=== PATIENT | female | born 1985 | race Caucasian/White ===

== ENCOUNTER → 2016-06-28 | Outpatient (CLI) | payer OTHER ==
[~2016-06-28] VITALS: Ht 149.9 cm; Wt 59.0 kg
[~2016-06-28] MED LIST: AMOXICILLIN500 MG PO; BENTYL20 MG PO; CLONIDINE HCL0.2 MG PO; Macrobid PO; Motrin PO; NOHOMEMEDS; Ortho Cyclen 28 PO; PNV PRENATAL P1 EACH PO; ULTRAM50 MG PO; ZANTAC300 MG PO; ZITHROMAX Z-PA250 MG PO; ZOFRAN ODT4 MG PO
[2016-06-28 08:55] VITALS: BP 118/56
== END | disposition home or self-care (01) ==
LOC: IVINF 08:30
DX: O26.899 Other specified pregnancy related conditions, unspecified trimester (principal); Z3A.00 Weeks of gestation of pregnancy not specified; Z67.91 Unspecified blood type, Rh negative
CPT/HCPCS: 96372; J2790

== ENCOUNTER 2016-07-30 20:40 | Outpatient (CLI) | payer OTHER ==
[2016-07-30 20:54] VITALS: BP 120/69
[2016-07-30 22:07] VITALS: BP 117/72
[2016-07-30 22:43] LABS: ADD MIUA? YES; BILIRUBIN NEGATIVE; BLOOD NEGATIVE; COLOR YELLOW ((YELLOW)); GLUCOSE (STRIP) NEGATIVE; KETONES NEGATIVE; LEUKOCYTES SMALL; NITRITE NEGATIVE; PROTEIN (STRIP) NEGATIVE; SPECIFIC GRAVITY 1.008 (1.000-1.030); UROBILINOGEN 0.2 MG/DL (0.2-1.0)
[2016-07-30 23:05] LABS: AMPHETAMINES QUANT VALUE 0 NG/ML; BACTERIA NONE SEEN /HPF; BARBITUATES QUANT VALUE 0 NG/ML; BENZODIAZEPINES QUANT VALUE 0 NG/ML; BENZODIAZEPINES, URINE SCREEN Negative (200 ng/mL); EPITHELIAL CELLS 2+ /HPF; MARIJUANA QUANT VALUE 0 NG/ML; MUCUS TRACE /LPF; OPIATES QUANTITATIVE VALUE 0 NG/ML; PHENCYCLIDINE QUANT VALUE 0 NG/ML; RED BLOOD CELLS 0-5 /HPF (0-5); WHITE BLOOD CELLS 20-30 /HPF (0-5)
== END 2016-07-30 23:45 | disposition home or self-care (01) ==
LOC: LDRP-OP → 2WEST 20:44 → LDRP-OP 10-24 13:44
PROVIDERS: Advanced Practice Midwife
DX: O26.893 Other specified pregnancy related conditions, third trimester (principal); M54.9 Dorsalgia, unspecified; Z3A.37 37 weeks gestation of pregnancy
CPT/HCPCS: 59025; 80306 90; 81003; 87077; 87086; 87186; G0378

== ENCOUNTER 2016-09-10 08:08 | Inpatient (IN) | payer OTHER ==
[~2016-09-10] VITALS: Ht 149.9 cm; Wt 68.6 kg
[2016-09-10] VITALS (18 sets, daily range): BP systolic 110–155; BP diastolic 60–87
[2016-09-10] MEDS ORDERED: GUMMI BEAR MUL1 EACH PO (08:39)
[2016-09-10 10:29] LABS: EOSINOPHIL (%) 0.7 % (0-5); EOSINOPHIL COUNT 0.1 K/uL (0-0.3); HEMATOCRIT 30.4 % (36.0-46.0); IMMATURE GRANULOCYTE (%) 1.8 % (0.0-0.7); IMMATURE GRANULOCYTE COUNT 0.2 K/uL; INSTRUMENT ABS NEUTROPHIL CT 6.3 K/uL; LYMPHOCYTE COUNT 1.3 K/uL (1.0-2.8); MCH 28.2 PG (29.0-34.0); MCHC 32.2 G/DL (30.0-36.0); MCV 87.6 FL (83-99); MEAN PLAT.VOLUME 10.6 uM^3 (9.5-12.4); MONOCYTE (%) 5.3 % (3-12); MONOCYTE COUNT 0.4 K/uL (0-0.8); NEUTROPHIL (%) 76.3 % (45-76); NEUTROPHIL COUNT 6.3 K/uL (1.8-6.4); PLATELET COUNT 208 K/uL (156-360); RBC DIS.WIDTH-CV 14.1 % (11.8-14.6); RBC DIS.WIDTH-SD 44.8 % (39-53); RED BLOOD COUNT 3.47 M/uL (3.80-5.20); WHITE BLOOD COUNT 8.3 K/uL (4.1-10.2)
[2016-09-11 05:46] LABS: BASOPHIL COUNT 0.1 K/uL (0-0.1); EOSINOPHIL COUNT 0.1 K/uL (0-0.3); HEMATOCRIT 28.5 % (36.0-46.0); IMMATURE GRANULOCYTE (%) 1.9 % (0.0-0.7); IMMATURE GRANULOCYTE COUNT 0.2 K/uL; INSTRUMENT ABS NEUTROPHIL CT 6.6 K/uL; LYMPHOCYTE COUNT 2.5 K/uL (1.0-2.8); MCH 27.7 PG (29.0-34.0); MCHC 30.9 G/DL (30.0-36.0); MCV 89.6 FL (83-99); MEAN PLAT.VOLUME 11.1 uM^3 (9.5-12.4); MONOCYTE (%) 5.9 % (3-12); MONOCYTE COUNT 0.6 K/uL (0-0.8); NEUTROPHIL (%) 65.7 % (45-76); NEUTROPHIL COUNT 6.6 K/uL (1.8-6.4); PLATELET COUNT 187 K/uL (156-360); RBC DIS.WIDTH-CV 14.1 % (11.8-14.6); RBC DIS.WIDTH-SD 45.8 % (39-53); RED BLOOD COUNT 3.18 M/uL (3.80-5.20); WHITE BLOOD COUNT 10.1 K/uL (4.1-10.2)
[2016-09-11 23:00] VITALS: BP 107/56
[2016-09-12 08:01] VITALS: BP 113/59
[2016-09-12] MEDS ORDERED: IBUPROFEN800 MG PO (09:27)
[2016-09-12] MEDS ORDERED: FERROUS GLUCON324 MG PO (09:27)
== END 2016-09-12 13:20 | disposition home or self-care (01) | DRG 775 ==
LOC: LDRP-OP 08:08 → 2WEST 08:09 → LDRP-OP 10-24 00:22
PROVIDERS: Advanced Practice Midwife
DX: O36.5930 Maternal care for other known or suspected poor fetal growth, third trimester, not applicable or unspecified (principal); Z3A.38 38 weeks gestation of pregnancy; Z37.0 Single live birth; O99.334 Smoking (tobacco) complicating childbirth; F17.210 Nicotine dependence, cigarettes, uncomplicated; O99.824 Streptococcus B carrier state complicating childbirth
CPT/HCPCS: 85025; 88307; C1755; J0595; J2540; J7120

== ENCOUNTER 2017-06-20 05:52 | Day surgery (SDC) | payer OTHER ==
[~2017-06-20] VITALS: Ht 152.4 cm; Wt 54.0 kg
[~2017-06-20 05:52] MED LIST changes: +FERROUS GLUCON324 MG PO; +GUMMI BEAR MUL1 EACH PO; +IBUPROFEN800 MG PO
[2017-06-20] MEDS ORDERED: ALEVE220 MG PO (06:12)
[2017-06-20 06:18] VITALS: BP 121/68
[2017-06-20] MEDS ORDERED: PERCOCET 5/31 TABLET PO (08:19)
[2017-06-20 10:23] VITALS: BP 115/64
[2017-06-20 11:27] VITALS: BP 116/60
== END 2017-06-20 11:45 | disposition home or self-care (01) ==
LOC: SDC
DX: Z30.2 Encounter for sterilization (principal); N94.10 Unspecified dyspareunia; G89.29 Other chronic pain; K25.9 Gastric ulcer, unspecified as acute or chronic, without hemorrhage or perforation; R53.82 Chronic fatigue, unspecified; F17.210 Nicotine dependence, cigarettes, uncomplicated; Z82.49 Family history of ischemic heart disease and other diseases of the circulatory system; Z83.3 Family history of diabetes mellitus; Z80.0 Family history of malignant neoplasm of digestive organs; Z80.6 Family history of leukemia
CPT/HCPCS: J0131; J0690; J1100; J1170; J1885; J2250; J2405; J2710; J3010; J7120; S0020

== ENCOUNTER 2018-01-03 13:04 | Emergency (ER) | payer OTHER ==
[~2018-01-03] VITALS: Ht 149.9 cm; Wt 36.3 kg
[~2018-01-03 13:04] MED LIST changes: +ALEVE220 MG PO; +PERCOCET 5/31 TABLET PO
[2018-01-03 14:29] LABS: APPEARANCE CLEAR ((CLEAR)); BILIRUBIN NEGATIVE; BLOOD NEGATIVE; COLOR YELLOW ((YELLOW)); GLUCOSE (STRIP) NEGATIVE; KETONES NEGATIVE; LEUKOCYTES TRACE; NITRITE POSITIVE; PROTEIN (STRIP) NEGATIVE; SPECIFIC GRAVITY 1.017 (1.000-1.030)
[2018-01-03 14:49] LABS: EPITHELIAL CELLS RARE /HPF; MUCUS NONE SEEN /LPF; RED BLOOD CELLS NONE SEEN /HPF (0-5)
[2018-01-03 14:50] LABS: BACTERIA 3+ /HPF; UCUL ADDED? YES
[2018-01-03] MEDS ORDERED: AMOXICILLIN875 MG PO (15:07)
[2018-01-03] MEDS ORDERED: NAPROSYN500 MG PO (15:07)
[2018-01-03] MEDS ORDERED: PERIDEX473 ML MM (15:07)
[2018-01-03 15:35] VITALS: BP 138/89
== END 2018-01-03 15:38 | disposition home or self-care (01) ==
LOC: EME 13:04
PROVIDERS: Nurse Practitioner Family
DX: N39.0 Urinary tract infection, site not specified (principal); K04.7 Periapical abscess without sinus; K02.9 Dental caries, unspecified; M54.5 Low back pain; F17.200 Nicotine dependence, unspecified, uncomplicated; Z98.51 Tubal ligation status
CPT/HCPCS: 81003; 81025; 87077; 87086; 87186; 99281; 99284; J0696